=== PATIENT | female | born 1950 | race Caucasian/White ===

== ENCOUNTER 2023-12-16 13:14 | Emergency (ER) | payer MEDICARE, OTHER, SELFPAY ==
[2023-12-16 13:21] VITALS: BP 182/104
[2023-12-16 13:38] LABS: % Basophils 0.4 % (0-2); % Immature Granulocytes 0.4 % (0-0.5); % Lymphocytes 4.6 % (20.5-51.1); % Monocytes 8.3 % (1.7-9.3); % Neutrophils 86.3 % (42.2-75.2); Absolute Lymphocytes 0.4 10^3/uL (1.2-3.4); Absolute Monocytes 0.7 10^3/uL (0.1-0.6); Absolute Neutrophils 7.4 10^3/uL (1.4-6.5); Hematocrit 40.9 % (37.0-47.0); Hemoglobin 14.3 g/dL (12.0-16.0); Mean Corpuscular Hgb 31.1 pg (27.0-31.0); Mean Corpuscular Volume 88.9 fL (81.0-99.0); Mean Platelet Volume 10.9 fL (7.4-10.4); Nucleated Red Blood Cells % 0 %; Platelet Count 147 10^3/uL (130-400); Red Cell Dist. Width 13.2 % (11.5-14.5); White Blood Cell Count 8.5 10^3/uL (4.8-10.8)
[2023-12-16 13:55] LABS: ALT (SGPT) 101 U/L (0-35); AST (SGOT) 79 U/L (14-36); Albumin 3.9 g/dl (3.5-5.0); Alkaline Phosphatase 81 U/L (38-126); Blood Urea Nitrogen 17 mg/dl (7-17); Calcium 9.5 mg/dl (8.4-10.2); Carbon Dioxide 24 mmol/L (22-30); Chloride 101 mmol/L (98-107); Glucose 129 mg/dl (70-99); Potassium 3.1 mmol/L (3.5-5.1); Sodium 136 mmol/L (135-145); Total Bilirubin 2.4 mg/dl (0.2-1.3); Total Protein 6.4 g/dl (6.3-8.2); eGFR 53.06
[2023-12-16 15:11] VITALS: BP 172/93
--- NOTE | 2023-12-16 15:17 | ED.GENMED ---
History of Present Illness
General
Chief Complaint: Fainting/Passed Out
Source: patient and family
Time Seen by Provider: 12/16/23 15:05
Travel History
Have you had any contact with someone who has COVID-19?: No
Do you have any symptoms of coronavirus? Fever > 100 degrees, chills, cough, shortness of breath, sore throat, loss of taste or smell, muscle aches, or headache?: No
History of Present Illness
History of Present Illness:
73-year-old female with past medical history of hypertension presenting to the emergency department for evaluation via EMS after she had a witnessed syncopal episode at her dentist office earlier this afternoon. Patient states that she was having
over 2-1/2 hours worth of dental work done and upon getting up from the chair started to feel lightheaded and proceeded to pass out. Patient notes she has had a mild headache all morning but attributes this to not eating or drinking anything prior
to the dentist and notes she still has eaten or drank anything. She notes she did not take her blood pressure medication either. She denies any chest pain, shortness of breath, palpitations, diaphoresis, exertional dyspnea or any other concerns.
Notes she has not had syncopal episodes in the past. Social history was significant for drinking an alcoholic beverage with dinner on most nights throughout the week. No other concerns.
Past History
Past History
ED Past Medical History: HTN
ED Past Surgical History: Cholecystectomy and Gynecological
Social History
Tobacco: Non-smoker
Alcohol: Occasional
Drug: None
Personal:
Living: alone
Review of Systems
Review of Systems
All Other Systems: ROS reviewed and negative except as documented in HPI and ROS
Phy Exam
Physical Exam
Physical Exam:
GENERAL: Alert , in no apparent distress
EYE: pupils equal and reactive, 3 mm, EOMI
NECK: Supple
ENT: o/p clr, mmm.
CARDIAC: Regular rate and rhythm .
LUNGS: Clear breath sounds bilaterally, no acute respiratory distress, no wheezes/rales/rhonchi
ABDOMEN: Soft, without focal tenderness, no r/g, no cvat
NEUROLOGICAL: Alert and oriented, no focal neuro deficits, moves all extremities, sensation grossly intact light touch throughout
SKIN: Warm and dry, skin intact.
MUSCULOSKELETAL: No edema, well perfused.
PSYCH: Normal and appropriate interaction.
Scores
Heart Failure Risk
Heart Failure Risk Score: Not Applicable
Heart Score for Chest Pain Patients
STEMI patient?: Not applicable
Withdrawal Assessment of Alcohol
Withdrawal Assessment Completed?: Not applicable
Course
Orders/Labs/Results
Orders:
Orders
12/16/23 13:15
EKG [Electrocardiogram (*1)] Urgent
Reason for Study: Syncope
EKG- Treatment ONCE
12/16/23 13:[address] [CT Head W/o Iv Contrast] Urgent
Comment:
Reason For Exam: syncope/severe headache
12/16/23 13:32
CBC/With Diff [Complete Blood Count/With Diff] Urgent
CMP [Comprehensive Metabolic Panel] Urgent
12/16/23 15:19
Potassium Chloride [KCl] 40 meq PO NOW STA
Abnormal Lab Results
12/16/23
13:32
MCH 31.1 H pg
(27.0-31.0)
MPV 10.9 H fL
(7.4-10.4)
Absolute Neuts (auto) 7.4 H 10^3/uL
(1.4-6.5)
Absolute Lymphs (auto) 0.4 L 10^3/uL
(1.2-3.4)
Absolute Monos (auto) 0.7 H 10^3/uL
(0.1-0.6)
Neutrophils % 86.3 H %
(42.2-75.2)
Lymphocytes % 4.6 L %
(20.5-51.1)
Potassium 3.1 L mmol/L
(3.5-5.1)
Creatinine 1.1 H mg/dL
(0.6-1.0)
Glucose 129 H mg/dl
(70-99)
Total Bilirubin 2.4 H mg/dl
(0.2-1.3)
AST 79 H U/L
(14-36)
ALT 101 H U/L
(0-35)
12/16/23 13:32
12/16/23 13:32
Vital Signs
Initial and Last Documented VS:
Initial Vital Signs
Temp Pulse Resp BP Pulse Ox
98.5 F 91 18 182/104 99
12/16/23 13:21 12/16/23 13:21 12/16/23 13:21 12/16/23 13:21 12/16/23 13:21
Last Documented Vital Signs
Temp Pulse Resp BP Pulse Ox
98.5 F 91 18 182/104 99
12/16/23 13:21 12/16/23 13:21 12/16/23 13:21 12/16/23 13:21 12/16/23 13:21
MDM/Problems Addressed
Differential Diagnosis Includes:
Orthostasis, vagal episode, dysrhythmia, electrolyte disturbance, dehydration
MDM/Problems Addressed:
73-year-old female presenting the emergency department for evaluation following a syncopal episode at her dentist. I suspect orthostasis/vagal episode to be the most likely especially given the fact patient had been laying reclined for an extended
period of time and not eaten or drank anything today as well as the prodromal symptoms prior to her syncope. Patient continuously stating during the exam that she would like to go home and to eat and drink and go to sleep. Patient was notified of
her elevated blood pressure on arrival. This was repeated and still elevated at 170/93. I also discussed with patient her lab abnormalities including her hypokalemia, mildly elevated creatinine and elevated liver function tests. Patient was not
familiar with any previous labs she has had in the past and does not have any care on record. it is certainly possible that patient's liver function tests are elevated due to her having an alcoholic beverage nightly although I did notify patient
that she should follow-up with her primary care doctor for this and have these labs repeated in 2 to 4 weeks. Patient feels comfortable being discharged home. 40 mill equivalents of potassium ordered to replete patient's potassium. Aware of
return precautions to the emergency
*Radiology
Radiology exam reviewed: radiology read reviewed
*Pulse Oximetry
Patient hypoxic: no
*EKG
Interpreted by ED Provider?: Yes
Comparison EKG: no comparison EKG present
Heart Rate: 87
Rate: normal
Rhythm: sinus
[place]: left axis deviation
*Draw Bench Operator Helper Interpretation
Rate: normal
Rhythm: sinus
*Critical Care Note
Total Time (30-74mins, 75-104mins- exclusive of procedures): Not Applicable
ED Attending Note
-
Portions of this chart may have been created with voice recognition software.� Occasional wrong word or��sound alike� substitutions may have occurred due to the inherent limitations of voice recognition software.
Discharge Plan
Departure
Patient Disposition: Home (Routine Discharge)
Date of Disposition: 12/16/23
Time of Disposition: 15:18
Patient with high blood pressure during this ER visit?: Yes
Discharge Problem:
Vasovagal syncope, Elevated liver function tests, Elevated serum creatinine
Instructions: Syncope (Fainting) (DC)
Activity Restrictions/Additional Instructions:
You need to follow-up with your family doctor and have repeat blood work done in 2 to 4 weeks to recheck your renal function as well as your liver function tests. Your potassium was also slightly low. Make sure to increase potassium within your
diet.
Interventions
Interventions:
*Risk Screen - Suicide Last Done: 12/16/23 14:58
*General Assessment Last Done: 12/16/23 14:59
*Neglect/Abuse Screening Last Done: 12/16/23 14:58
*ED COVID-19 Vaccine History Last Done: 12/16/23 14:59
ED- Cardiac Assessment Last Done: 12/16/23 15:45
ED- Neurological Assessment Last Done: 12/16/23 15:45
Discharge Date and Time
Print Language: BHUTANESE
[2023-12-16] MEDS: KCL 40 MEQ PO (15:42)
== END 2023-12-16 15:52 | disposition home or self-care (01) ==
LOC: EMR 13:14
PROVIDERS: Student in an Organized Health Care Education/Training Program; EMERGENCY PHYSICIAN Emergency Medicine; FAMILY PHYSICIAN Family Medicine
DX: R55 Syncope and collapse (principal); R42 Dizziness and giddiness; R51.9 Headache, unspecified; R79.89 Other specified abnormal findings of blood chemistry; I10 Essential (primary) hypertension
CPT/HCPCS: 99285; 70450; 80053; 85025; 93005